=== PATIENT | female | born 2000 | race Hispanic/Latino ===

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

== ENCOUNTER → 2020-04-15 | Outpatient (CLI) | payer OTHER ==
--- NOTE | 2020-04-15 09:37 | Diagnostic Imaging Report ---
EXAM: Renal Ultrasound INDICATION: ^SOLITARY KIDNEY COMPARISON: None TECHNIQUE: Transverse and longitudinal images of the kidneys and bladder were obtained. FINDINGS: Right Kidney: Not visualized. Reported history of right renal agenesis. Left Kidney: Length: 12.9 cm Appearance: Normal echogenicity. Collecting system: No hydronephrosis. Mild pelviectasis, unchanged. Stones: None Cyst/Mass: None Bladder: No mass or calculi. Left ureteral jet seen. Prevoid volume estimate of 143 cc. IMPRESSION: Unchanged mild left pelviectasis. No renal calculi or solid mass lesion. Nonvisualization of right kidney. Provided history of renal agenesis. Signed by: Josse Helm MD on 04/15/2020 9:34 AM
== END ==
LOC: US 08:46
PROVIDERS: ATTEND Urology
DX: R31.0 Gross hematuria (principal)
CPT/HCPCS: 76770

== ENCOUNTER → 2021-03-04 | Outpatient (CLI) | payer OTHER | LOC: US 11:36 | PROVIDERS: ATTEND Urology | DX: N13.30 Unspecified hydronephrosis (principal) | CPT/HCPCS: 76770 ==